=== PATIENT | female | born 1995 | race Caucasian/White ===

== ENCOUNTER 2018-03-27 22:50 | Emergency (ER) | payer SELFPAY ==
[2018-03-28 02:47] VITALS: BP 138/83; PULSE 100; RESP 22; TEMP 100; O2SAT 98
[2018-03-28 10:43] LABS: HCG,QUALITATIVE URINE NEGATIVE (NEGATIVE)
[2018-03-28 11:04] LABS: URINE BILIRUBIN NEGATIVE (NEGATIVE); URINE BLOOD 3+ (NEGATIVE); URINE CLARITY Hazy (Clear); URINE COLOR Yellow (YELLOW); URINE GLUCOSE (UA) NORMAL (Normal); URINE LEUKOCYTE ESTERASE 3+ Leu/uL (Negative); URINE PROTEIN 2+ mg/dL (NEGATIVE); URINE UROBILINOGEN NORMAL mg/dL (0.2-1.0); WBC CLUMPS FEW /hpf
== END 2018-03-28 02:12 | disposition home or self-care (01) ==
LOC: C.ER 22:50
DX: N39.0 Urinary tract infection, site not specified (principal)